=== PATIENT | male | born 1960 | race Caucasian/White ===

== ENCOUNTER 2024-11-02 10:31 | Outpatient (CLI) | payer OTHER | END 2024-11-02 10:32 | disposition home or self-care (01) | LOC: NUCLEAR 10:31 | PROVIDERS: ATTEND Internal Medicine | DX: I87.2 Venous insufficiency (chronic) (peripheral) (principal) ==

== ENCOUNTER 2025-07-29 08:45 | Outpatient (CLI) | payer OTHER | END 2025-07-29 08:48 | disposition home or self-care (01) | LOC: SONOGRAMA 08:45 | DX: M25.511 Pain in right shoulder (principal) ==